=== PATIENT | male | born 1990 | race Caucasian/White ===

== ENCOUNTER 2019-12-19 16:00 | Emergency (ER) | payer SELFPAY ==
[2019-12-19 16:10] VITALS: BP 134/78; PULSE 113; RESP 16; TEMP 37.2; O2SAT 100
--- NOTE | 2019-12-19 16:28 | ED_ITS ---
HPI - Wound/Laceration General Chief Complaint: Upper Respiratory Infection Stated Complaint: sore throat Source: patient History of Present Illness HPI narrative: The patient, previously mostly healthy, presents with wound check of sore throat. Patient states he used a plastic coffee stirrer to remove a piece of retained chicken in the back of his left throat, about 4 days ago. No fever, hoarseness, trismus but he noticed on reinspection that is appeared pin k,excoriated with whitish color. He reports antibiotic allergies, including to penicillin with rash/itching. Related Data Allergies Allergy/AdvReac Type Severity Reaction Status Date / Time vancomycin Allergy Mild Itching Verified 07/06/15 22:29 Penicillins Allergy Hives Verified 12/19/19 16:10 Review of Systems Review of Systems: Narrative: General/Constitutional: No weight loss,fever Eyes: N0: Redness,discharge Ears/Nose/Throat: No: Epistaxis,ear discharge Respiratory: Denies: Hemoptysis Gastrointestinal: No Vomiting, Bleeding-rectal Skin: No Lumps, eruption Neurologic: No Focal Weakness,Sz Hematologic: Denies: Petechiae/Purpura Psychiatric: No: Suicida ideationl All Other Systems: Reviewed and Negative PMFSH Comments At time of signature, agree with nursing past medical, surgical, social and family history. There is no relevant family history pertinent to the presenting complaint Exam Narrative: Exam Narrative: General Appearance: Well appearing, Conjunctiva clear Mouth/Throat: MM moist, Uvula midline, Pharyngeal erythema especially on the left with aphthous ulceration appearance] Neck: Supple, No adenopathy Respiratory: No respiratory distress, airway patent Musculoskeletal: Non tender, Normal strength Skin: Warm, Dry Neurological: A&O x3, Normal affect Course Vital Signs Vital signs: Vital Signs Temperature 98.9 F 12/19/19 16:10 Pulse Rate 113 H 12/19/19 16:10 Respiratory Rate 16 12/19/19 16:10 Blood Pressure 134/78 12/19/19 16:10 Pulse Oximetry 100 12/19/19 16:10 Temperature 98.9 F 12/19/19 16:10 Pulse Rate 113 H 12/19/19 16:10 Respiratory Rate 16 12/19/19 16:10 Blood Pressure 134/78 12/19/19 16:10 Pulse Oximetry 100 12/19/19 16:10 Discharge Plan Discharge Clinical Impression: Encounter for post-traumatic wound check Patient Disposition: Home, Self-Care Condition: Stable Prescriptions: New Lidocaine Viscous 2 % solution 5 ml MUCOUS MEM QID PRN (Reason: pain) Qty: 100 RF: 0 azithromycin 250 mg tablet See Rx Instructions .ROUTE .COMPLEX Qty: 6 RF: 0 Interventions: Discharge Disposition Last Done: 12/19/19 16:29 Follow-up/Referrals: UNKNOWN,DOCTOR [Primary Care Provider] - Discharge Date/Time: 12/19/19 16:32
== END 2019-12-19 16:32 | disposition home or self-care (01) ==
PROVIDERS: Emergency Provider Emergency Medicine
DX: S19.9XXA Unspecified injury of neck, initial encounter (principal); X58.XXXA Exposure to other specified factors, initial encounter
CPT/HCPCS: 99203; G0463

== ENCOUNTER 2020-07-10 10:45 | Emergency (ER) | payer SELFPAY ==
[2020-07-10 11:01] VITALS: BP 137/96; PULSE 81; RESP 16; TEMP 36.5; O2SAT 100
--- NOTE | 2020-07-10 11:15 | ED_ITS ---
HPI - Extremity Injury (Upper) General Chief Complaint: Extremity Injury, Upper Stated Complaint: INJURED L WRIST Source: patient and RN notes reviewed Limitations: no limitations History of Present Illness HPI narrative: The patient, who is right-handed, presents with left wrist pain. Patient states he about half week history of left distal, ulnar wrist pain that is mild, worse with motion, better at rest and, slightly improved with Velcro splint. No direct trauma, bleeding, deformity-he is concerned about the edema [after sleeping in splint]. Symptoms began after he was weight lifting, atraumatically; he [financially?] declines Xray imaging. Related Data Allergies Allergy/AdvReac Type Severity Reaction Status Date / Time vancomycin Allergy Mild Itching Verified 07/10/20 10:54 Penicillins Allergy Hives Verified 07/10/20 10:54 Review of Systems Review of Systems: Narrative: General/Constitutional: No weight loss,fever Skin: No Lumps, eruption Neurologic: No Focal Weakness,Sz Hematologic: Denies: Petechiae/Purpura PMFSH Comments At time of signature, agree with nursing past medical, surgical, social and family history. There is no relevant family history pertinent to the presenting complaint Exam Narrative: Exam Narrative: General Appearance: Well appearing, , Conjunctiva clear Mouth/Throat: Normal appearing, Normal lips, Supple MS-wrist: Normal strength (mostly intact, limited flexion/extension by pain), Tenderness (ulnar/laterally, with mild decreased ROM), Scant swelling (laterally), Other (no anterior drawer, no collateral laxity, ) no snuffbox tenderness Skin: Warm, Dry, Normal color Neurological: A&O x3, normal affect Course Vital Signs Vital signs: Vital Signs Temperature 97.7 F 07/10/20 11:01 Pulse Rate 81 07/10/20 11:01 Respiratory Rate 16 07/10/20 11:01 Blood Pressure 137/96 H 07/10/20 11:01 Pulse Oximetry 100 07/10/20 11:01 Temperature 97.7 F 07/10/20 11:01 Pulse Rate 81 07/10/20 11:01 Respiratory Rate 16 07/10/20 11:01 Blood Pressure 137/96 H 07/10/20 11:01 Pulse Oximetry 100 07/10/20 11:01 Discharge Plan Discharge Clinical Impression: Injury of triangular fibrocartilage complex (TFCC) of left wrist Qualifiers: Encounter type: initial encounter Qualified Code(s): S69.82XA - Other specified injuries of left wrist, hand and finger(s), initial encounter Patient Disposition: Home, Self-Care Condition: Stable Additional Instructions: Continue wrist splint, and try provided physical therapy exercises Prescriptions: New tramadol 50 mg tablet 50 mg PO Q6H PRN (Reason: pain) Qty: 15 RF: 1 Follow-up/Referrals: PHYSICIAN,[facility] [Primary Care Provider] -
== END 2020-07-10 11:25 | disposition home or self-care (01) ==
PROVIDERS: Emergency Provider Emergency Medicine
DX: S69.82XA Other specified injuries of left wrist, hand and finger(s), initial encounter (principal); X58.XXXA Exposure to other specified factors, initial encounter
CPT/HCPCS: 99213; G0463